=== PATIENT | female | born 1975 | race Caucasian/White ===

== ENCOUNTER → 2016-11-16 | Outpatient (REF) | payer OTHER | LOC: M SFHCLERA 18:38 | PROVIDERS: ATTEND Nurse Practitioner Family | DX: Z11.9 Encounter for screening for infectious and parasitic diseases, unspecified (principal) ==

== ENCOUNTER → 2019-01-18 | Outpatient (CLI) | payer OTHER ==
--- NOTE | 2019-01-18 15:31 | REP ---
Left knee five views : There is no fracture or dislocation. Mineralization and joint spaces are normal. There are no calcifications or foreign bodies. Impression: Negative left knee . Electronically Signed by Robby Tovar MD 01/18/2019 03:22 P
== END ==
LOC: M WUC 12:31
PROVIDERS: ATTEND Nurse Practitioner Family
DX: M25.562 Pain in left knee (principal)